=== PATIENT | male | born 1945 | race Hispanic/Latino ===

== ENCOUNTER 2018-04-20 13:10 | Inpatient (IN) | payer MEDICARE, OTHER ==
[2018-04-20 13:31] VITALS: BMI 28.8
--- NOTE | 2018-04-20 13:50 | ED PDOC ---
Arrival/HPI - General Chief Complaint: Chest Pain Time Seen by Provider: 04/20/18 13:41 Historian: Patient - History of Present Illness Narrative History of Present Illness (Text): 04/20/18 13:42 72 year old male, whose PMH includes hypertension, 3 coronary stents, and 2 disc removals, who presents to the emergency department complaining of chest tightness associated with shortness of breath, and tingling in left arm. Patient reports this began since the morning at 10:30 and decided to take prescribed medication given by his assembler molded frames Dr. Hope, which provided mild relief. Patient currently feels better but is still experiencing chest tightness. Patient denies dizziness, headache, abdominal pain, fever, nausea, vomiting, diarrhea, or other complaints. Time/Duration: 1-3 hours Symptom Onset: Sudden Symptom Course: Improving Context: Home Past Medical History - Provider Review Nursing Documentation Reviewed: Yes - Tetanus Immunization Tetanus Immunization: Unknown - Cardiac Hx Hypertension: Yes - Pulmonary Hx Respiratory Disorders: No - Neurological Hx Neurological Disorder: No - HEENT Hx HEENT Disorder: No - Renal Hx Renal Disorder: No - Endocrine/Metabolic Hx Endocrine Disorders: No - Hematological/Oncological Hx Blood Disorders: No - Integumentary Hx Dermatological Disorder: No - Musculoskeletal/Rheumatological Hx Arthritis: Yes - Gastrointestinal Hx Gastrointestinal Disorders: No - Genitourinary/Gynecological Hx Genitourinary Disorders: No - Psychiatric Hx Psychophysiologic Disorder: No Hx Substance Use: No - Surgical History Hx Cardiac Catheterization: Yes Hx Coronary Stent: Yes (x3) Hx Orthopedic Surgery: Yes (left rotator cuff, two disc removed) - Anesthesia Hx Anesthesia: Yes Hx Anesthesia Reactions: No Hx Malignant Hyperthermia: No - Suicidal Assessment Feels Threatened In Home Enviroment: No Family/Social History - Physician Review Nursing Documentation Reviewed: Yes Family/Social History: Unknown Family HX Smoking Status: Never Smoked Hx Alcohol Use: No Hx Substance Use: No Hx Substance Use Treatment: No Allergies/Home Meds Allergies/Adverse Reactions: Allergies No Known Allergies Allergy (Verified 04/20/18 13:18) Home Medications: Home Meds Medication Instructions Recorded Confirmed Aspirin/Calcium Carbonate [Marquise 81 mg PO DAILY 09/16/14 09/16/14 Aspirin Regimen W/Calcium] Atorvastatin Calcium [Lipitor] 20 mg PO DAILY 09/16/14 09/16/14 Clopidogrel [Plavix] 75 mg PO DAILY 09/16/14 09/16/14 Cyanocobalamin [Vitamin B12] 1,000 mcg PO DAILY 09/16/14 09/16/14 Escitalopram [Lexapro] 20 mg PO DAILY 09/16/14 09/16/14 Folic Acid 1 mg PO DAILY 09/16/14 09/16/14 Memantine [Namenda] 10 mg PO DAILY 09/16/14 09/16/14 Metoprolol Succinate 50 mg PO DAILY 09/16/14 09/16/14 Naproxen [Naprosyn] 375 mg PO DAILY 09/16/14 09/16/14 Valsartan [Diovan] 160 mg PO DAILY 09/16/14 09/16/14 Zolpidem HALF TABLET [Ambien] 2.5 mg PO HS 09/16/14 09/16/14 diaZEpam [Valium] 10 mg PO PRN PRN 09/16/14 09/16/14 Review of Systems - Review of Systems Constitutional: absent: Fevers Eyes: absent: Vision Changes Respiratory: SOB. absent: Cough Cardiovascular: Chest Pain Gastrointestinal: absent: Abdominal Pain, Vomiting, Food Intolerance Genitourinary Male: absent: Dysuria Musculoskeletal: absent: Back Pain Skin: absent: Rash Neurological: Other (left arm tingling ). absent: Headache Physical Exam Vital Signs Reviewed: Yes Vital Signs Temp Pulse Pulse Resp BP Pulse Ox 04/20/18 15:39 68 17 128/92 H 94 L 04/20/18 13:28 97.8 F 81 18 146/61 95 04/20/18 13:22 70 Temperature: Afebrile Blood Pressure: Normal Pulse: Regular Respiratory Rate: Normal Appearance: Positive for: Well-Appearing, Non-Toxic, Comfortable Pain Distress: None Mental Status: Positive for: Alert and Oriented X 3 - Systems Exam Head: Present: Atraumatic, Normocephalic Pupils: Present: PERRL Extroacular Muscles: Present: EOMI Conjunctiva: Present: Normal Mouth: Present: Other (shorted neck due to surgery (disc removal) ) Respiratory/Chest: Present: Clear to Auscultation, Good Air Exchange. No: Respiratory Distress, Accessory Muscle Use, Wheezes, Rales, Rhonchi Cardiovascular: Present: Regular Rate and Rhythm, Normal S1, S2. No: Murmurs Abdomen: Present: Normal Bowel Sounds. No: Tenderness, Distention, Peritoneal Signs, Rebound, Guarding Lower Extremity: Present: Normal Inspection, NORMAL PULSES, Normal ROM, Neurovascularly Intact, Capillary Refill < 2 s. No: Edema, Cyanosis, Tenderness , Swelling, Erythema, Deformity Neurological: Present: GCS=15, CN II-XII Intact, Speech Normal Skin: Present: Warm, Dry, Normal Color. No: Rashes Psychiatric: Present: Alert, Oriented x 3, Normal Insight, Normal Concentration Medical Decision Making ED Course and Treatment: 04/20/18 Impression: 72 year old male, with unremarkable physical exam complaining of chest pain and shortness of breath that is improving. Plan: -- EKG -- Labs -- Chest X-ray -- Urinalysis -- Aspirin -- Reassess and disposition Progress Notes: EKG: Ordered, reviewed, and independently interpreted the EKG. Rate : 85 BPM Rhythm : NSR Interpretation : Normal axis 04/20/18 14:[address] Luna who is aware of plan and admitting patient to observation telemetry. Chest X-ray Dictator : Star Mccartney MD Report Date : 04/20/2018 14:44:33 IMPRESSION: No active disease. 04/20/18 16:10: Case discussed in detail with Dr. Mayo who agrees with emergency department management. EKG: Ordered, reviewed, and independently interpreted the EKG. Rate : 68 BPM Rhythm : NSR Interpretation : Normal axis - Lab Interpretations Lab Results: 04/20/18 13:45 04/20/18 13:45 Lab Results 04/20/18 13:45: Sodium 147, Potassium 4.0, Chloride 106, Carbon Dioxide 27, Anion Gap 18, BUN 15, Creatinine 1.3, Est GFR ( Amer) > 60, Est GFR (Non- Af Amer) 54, Random Glucose 98, Calcium 9.3, Magnesium 1.8, Total Bilirubin 0.6 , AST 25, ALT 27, Alkaline Phosphatase 66, Lactate Dehydrogenase 444, Total Creatine Kinase 93, Troponin I 0.03, NT-Pro-B Natriuret Pep 68.5, Total Protein 7.2, Albumin 4.3, Globulin 2.9, Albumin/Globulin Ratio 1.5 04/20/18 13:45: WBC 10.1, RBC 4.58, Hgb 14.4, Hct 42.6, MCV 93.0, MCH 31.4, MCHC 33.8, RDW 13.5, Plt Count 260, MPV 8.7, Gran % 66.3, Lymph % (Auto) 24.0, [place] % (Auto) 8.8 H, Eos % (Auto) 0.6 L, Baso % (Auto) 0.3, Gran # 6.72 H, Lymph # (Auto) 2.4, [place] # (Auto) 0.9 H, Eos # (Auto) 0.1, Baso # (Auto) 0.03 I have reviewed the lab results: Yes - RAD Interpretation Radiology Orders: 04/20/18 13:47 CHEST PORTABLE [RAD] Stat Environmental Projects Advisor: Radiologist - EKG Interpretation Interpreted by ED Physician: Yes Type: 12 lead EKG - Medication Orders Current Medication Orders: Discontinued Medications Aspirin (Aspirin) 325 mg PO STAT STA Stop: 04/20/18 13:47 Last Admin: 04/20/18 14:33 Dose: 325 mg - Scribe Statement The provider has reviewed the documentation as recorded by the Serge Baxter Provider Scribe Attestation: All medical record entries made by the Serge were at my direction and personally dictated by me. I have reviewed the chart and agree that the record accurately reflects my personal performance of the history, physical exam, medical decision making, and the department course for this patient. I have also personally directed, reviewed, and agree with the discharge instructions and disposition. Disposition/Present on Arrival - Present on Arrival History of DVT/PE: No History of Uncontrolled Diabetes: No Urinary Catheter: No History of Decub. Ulcer: No History Surgical Site Infection Following: None - Disposition
[2018-04-20 13:59] LABS: BASO # 0.03 K/mm3 (0.0-2.0); BASO % 0.3 % (0.0-3.0); EOS # 0.1 (0.0-0.7); EOS % 0.6 % (1.5-5.0); GRAN # 6.72 (1.4-6.5); GRAN % 66.3 % (50.0-68.0); HEMOGLOBIN 14.4 g/dL (14.0-18.0); LYMPH # 2.4 (1.2-3.4); MEAN CORPUSCULAR HEMOGLOBIN 31.4 pg (25.0-35.0); MEAN CORPUSCULAR HGB CONC 33.8 g/dl (31.0-37.0); MEAN PLATELET VOLUME 8.7 fl (7.0-11.0); MONO # 0.9 (0.1-0.6); MONO % 8.8 % (1.0-6.0); RBC 4.58 10^6/uL (3.5-6.1); RED CELL DISTRIBUTION WIDTH 13.5 % (11.5-14.5); WHITE BLOOD COUNT 10.1 10^3/ul (4.5-11.0)
[2018-04-20 14:21] LABS: B-TYPE NATRIURETIC PEPTIDE 68.5 pg/mL (0-450)
[2018-04-20 14:29] LABS: TROPONIN I 0.03 ng/mL
--- NOTE | 2018-04-20 14:46 | RAD ---
HISTORY: chest pain r/o infiltrate COMPARISON: 09/16/2014 FINDINGS: LUNGS: No active pulmonary disease. PLEURA: No significant pleural effusion identified, no pneumothorax apparent. CARDIOVASCULAR: Normal. OSSEOUS STRUCTURES: No significant abnormalities. VISUALIZED UPPER ABDOMEN: Normal. OTHER FINDINGS: None. IMPRESSION: No active disease.
[2018-04-20 16:51] LABS: ALB/GLOB RATIO 1.5 (1.1-1.8); ALBUMIN 4.3 g/dL (3.0-4.8); ALT/SGPT 27 U/L (7-56); AST/SGOT 25 U/L (17-59); BLOOD UREA NITROGEN 15 mg/dL (7-21); CALCIUM 9.3 mg/dL (8.4-10.5); GFR AFRICAN-AMERICAN > 60; GFR NON-AFRICAN AMERICAN 54
--- NOTE | 2018-04-20 18:21 | CARD ---
APPROVED REPORT EKG Measurement Heart [id number] <Conclusion> Normal sinus rhythm Normal ECG
[2018-04-20] MEDS ORDERED: Pneumococcal 23-Valent Vaccine IM ONE (22:06)
[2018-04-20] MEDS: Enoxaparin 80 mg Syringe SC SCH (23:12)
--- NOTE | 2018-04-21 06:41 | CP.PCM.HP ---
<Carleen Teresa - Last Filed: 04/21/18 08:17> History of Present Illness - History of Present Illness History of Present Illness: H&P for Radha Sultana PGY2 This is a 72yo male with past medical history HTN, CAD, depression who came to ED for sudden onset chest pain with shortness of breath. Patient states he was at [employer] when he had this sudden substernal chest pain that radiated down to his L arm. He was not doing any exertional exercise at the time. He also felt short of breath. He took a medication (unsure of the name) that was given to him by Dr. Mayo and it provided minimal relief. He has never had this pain before. Patient denies vision changes, numbness/tingling, fever/chills, nausea/ vomiting/diarrhea, dysuria, or hematuria. Patient states his symptoms have now resolved. In the ED, EKG showed NSR without any acute changes. CXR showed no active disease. Past medical history: HTN, CAD s/p 3 stents, cervical radiculopathy and depression Past surgical history: rotator cuff surgery, cervical disc removal (C4-C6), Home meds: As per MAR Social history: Denies EtOH, drug or tobacco use Morning Caregiver: Dr. Mayo Present on Admission - Present on Admission Any Indicators Present on Admission: No Review of Systems - Review of Systems All systems: reviewed and no additional remarkable complaints except Review of Systems: 12 point ROS reviewed as per HPI and is otherwise negative Past Patient History - Tetanus Immunizations Tetanus Immunization: Unknown - Past Social History Smoking Status: Never Smoked Alcohol: None Drugs: Denies - CARDIAC Hx Hypercholesterolemia: Yes Hx Hypertension: Yes - PULMONARY Hx Respiratory Disorders: No - NEUROLOGICAL Hx Neurological Disorder: No - HEENT Hx HEENT Problems: No - RENAL Hx Chronic Kidney Disease: No - ENDOCRINE/METABOLIC Hx Endocrine Disorders: No - HEMATOLOGICAL/ONCOLOGICAL Hx Blood Disorders: Yes - INTEGUMENTARY Hx Dermatological Problems: Yes Other/Comment: scratch strauss redness lle - MUSCULOSKELETAL/RHEUMATOLOGICAL Hx Musculoskeletal Disorders: Yes Hx Arthritis: Yes Hx Back Pain: Yes Hx Falls: Yes (last summer) Other/Comment: back problems since last bourne was trimming a rendon instead of going around pt jumped over rendon and fell injuring lower back - GASTROINTESTINAL Hx Gastrointestinal Disorders: No - GENITOURINARY/GYNECOLOGICAL Hx Genitourinary Disorders: No - PSYCHIATRIC Hx Psychophysiologic Disorder: No Hx Substance Use: No - SURGICAL HISTORY Hx Cardiac Catheterization: Yes Hx Coronary Stent: Yes (x3) Hx Orthopedic Surgery: Yes Other/Comment: left rotator cuff sx 4 sx's has decreased rom, cervical spine sx c 4-5 and c5-6 removed and replaced with 2 artificial discs - ANESTHESIA Hx Anesthesia: Yes Hx Anesthesia Reactions: No Hx Malignant Hyperthermia: No Meds Allergies/Adverse Reactions: Allergies Allergy/AdvReac Type Severity Reaction Status Date / Time No Known Allergies Allergy Verified 04/20/18 13:18 Physical Exam - Constitutional Appears: No Acute Distress - Head Exam Head Exam: ATRAUMATIC, NORMAL INSPECTION, NORMOCEPHALIC - Eye Exam Eye Exam: Normal appearance, PERRL Pupil Exam: NORMAL ACCOMODATION - ENT Exam ENT Exam: Mucous Membranes Moist - Respiratory Exam Respiratory Exam: Clear to Auscultation Bilateral, NORMAL BREATHING PATTERN. absent: Rales, Rhonchi, Wheezes - Cardiovascular Exam Cardiovascular Exam: REGULAR RHYTHM, +S1, +S2. absent: Gallop, Rubs, Systolic Murmur - GI/Abdominal Exam GI & Abdominal Exam: Normal Bowel Sounds, Soft. absent: Mass, Rebound, Rigid, Tenderness - Extremities Exam Extremities exam: Positive for: normal inspection. Negative for: calf tenderness, pedal edema - Neurological Exam Neurological exam: Alert, CN II-XII Intact, Oriented x3 - Psychiatric Exam Psychiatric exam: Normal Affect, Normal Mood - Skin Skin Exam: Dry, Warm Results - Vital Signs Recent Vital Signs: Last Vital Signs Temp 97.9 F 04/21/18 06:00 Pulse 60 04/21/18 06:00 Resp 18 04/21/18 06:00 BP 115/77 04/21/18 06:00 Pulse Ox 98 04/21/18 06:00 - Labs Result Diagrams: 04/20/18 13:45 04/20/18 13:45 Labs: Laboratory Results - last 24 hr 04/20/18 16:15 Troponin I 0.36 H* D Assessment & Plan - Assessment and Plan (Free Text) Assessment: This is a 72yo male with past medical history HTN, CAD, depression who was admitted for 1. NSTEMI 2. CAD s/p stents 3. HTN 4. Depression 5. Cervical radiculopathy Plan: Patient was found to have elevated troponin. He is on therapeutic Lovenox as well as Lipitor, metoprolol and ASA . Cardiology is consulted for further evaluation. Will speak to Dr. Mayo if patient had outpatient stress test or echo. His BP is normal at this time. Will hold his Diovan. Will continue Gabapentin and Lexapro. Pepcid for GI prophylaxis. Patient will be evaluated by physical therapy. Case seen, discussed and reviewed with Dr. Cheryl Teresa PGY2 - Date & Time Date: 04/21/18 Time: 07:50 <Hugo Luna S - Last Filed: 04/21/18 16:11> Results - Vital Signs Recent Vital Signs: Last Vital Signs Temp 98.4 F 04/21/18 12:00 Pulse 64 04/21/18 14:00 Resp 20 04/21/18 12:00 BP 125/67 04/21/18 12:00 Pulse Ox 98 04/21/18 06:00 - Labs Result Diagrams: 04/20/18 13:45 04/20/18 13:45 Labs: Laboratory Results - last 24 hr 04/21/18 10:20 Urine Color Yellow Urine Appearance Clear Urine pH 5.5 Ur Specific [place] 1.025 Urine Protein Negative Urine Glucose (UA) Negative Urine Ketones Negative Urine Blood Negative Urine Nitrate Negative Urine Bilirubin Negative Urine Urobilinogen 0.2 Ur Leukocyte Esterase Negative Assessment & Plan - Assessment and Plan (Free Text) Plan: Pt seen and examined. I have reviewed the note of the medical education manager and agree with it. I have discussed the assessment and plan with the resident. I have reviewed the patient's labs and medications. He has NSTEMI. He will need to get a cath in the morning. He has a hx of CAD with stents. He is not having chest pain. He was placed on ASA, Metoporolol and Lovenox.
--- NOTE | 2018-04-21 08:07 | CARD ---
APPROVED REPORT EKG Measurement Heart [id number] <Conclusion> Normal sinus rhythm Normal ECG
[2018-04-21 10:36] LABS: PH,URINE 5.5 (4.7-8.0); URINE BILIRUBIN NEGATIVE (NEGATIVE); URINE BLOOD NEGATIVE (NEGATIVE); URINE GLUCOSE (UA) NEGATIVE (NEGATIVE); URINE LEUKOCYTE ESTERASE NEGATIVE Leu/uL (NEGATIVE); URINE PROTEIN NEGATIVE mg/dL (<30 mg/dL); URINE UROBILINOGEN 0.2 E.U./dL (<1 E.U./dL)
[2018-04-21 10:40] LABS: URINE APPEARANCE CLEAR (CLEAR); URINE COLOR YELLOW (YELLOW)
[2018-04-21] MEDS: Enoxaparin 80 mg Syringe SC SCH (11:03)
[2018-04-21 16:58] LABS: INR 1.03 (0.93-1.08); PARTIAL THROMBOPLASTIN TIME 38.2 Seconds (25.1-36.5); PROTHROMBIN TIME 11.7 SECONDS (9.4-12.5)
--- NOTE | 2018-04-21 17:30 | CON ---
DATE: 04/21/2018 HISTORY OF PRESENT ILLNESS: This is a 72-year-old man, known to me, admitted with an episode of left arm tingling followed by chest pain and shortness of breath. He came to the emergency room and was found to have an elevated third troponin. He is resting comfortably in a telemetry bed this morning. The symptoms have resolved. There is no shortness of breath or chest pain. There is no orthopnea, PND, syncope, presyncope, lightheadedness, dizziness or vertigo. No palpitations, edema, claudication. No fever, chills, cough, sputum production or hemoptysis. No abdominal pain, nausea, vomiting, diarrhea, constipation or melena. PAST MEDICAL HISTORY: Notable for coronary artery disease with remote coronary stents, hypertension, cervical discogenic disease with a prior surgery. He has had shoulder surgery, depression, Alzheimer disease, but no history of congestive heart failure, arrhythmia, stroke, TIA, diabetes or gout. MEDICATIONS AT THE TIME OF ADMISSION: Include aspirin, Lipitor, Plavix, vitamin B12, Lexapro, folic acid, Namenda, metoprolol, Naprosyn, valsartan, Ambien, Valium p.r.n. ALLERGIES: THERE ARE NO KNOWN MEDICATION ALLERGIES. SOCIAL HISTORY: He lives at home. He is ambulatory. He does not currently smoke. He does not drink alcohol significantly. FAMILY HISTORY: Noncontributory. REVIEW OF SYSTEMS: A 10-point review of systems is otherwise unremarkable except as noted above. PHYSICAL EXAMINATION GENERAL: He is a well-developed man, lying in bed on telemetry, in no acute distress. VITAL SIGNS: Notable for sinus rhythm at 60 beats per minute. He is afebrile, blood pressure 115/77, respirations 18, and O2 sat 95%-98% on nasal cannula. HEENT: Reveals no neck vein distention, thyromegaly or carotid bruits. Mucous membranes moist. Conjunctivae pink. NECK: Supple. CHEST: Lung [place] clear. HEART: Reveals normal first and second heart sounds. There is a soft systolic murmur along the left sternal border. ABDOMEN: Soft, bowel sounds present. No mass, organomegaly, tenderness, rebound or guarding. No CVA tenderness. No palpable abdominal aortic aneurysm. EXTREMITIES: Revealed no cyanosis, clubbing or edema. NEUROLOGIC: Awake, alert and oriented. SKIN: Warm and dry. No rash or cellulitis. PSYCHIATRIC: Normal as to mood and affect. LABORATORY AND IMAGING: EKG demonstrates regular sinus rhythm, no acute changes, small inferior Q-waves. A repeat EKG shows similar findings. A portable chest x-ray reveals no active disease. CBC is unremarkable. Electrolytes, BUN, creatinine, blood sugar, magnesium, LFTs all unremarkable. CK initially 93. Troponin 0.3, repeat 0.36 and 3.31. BNP 68.5. IMPRESSION AND PLAN: Star Huggins is a 72-year-old man with known coronary artery disease, remote coronary interventions, admitted with atypical left arm and chest pain episode with shortness of breath, found to have elevated troponin with benign EKG. He is admitted to telemetry. We will plan a cardiac catheterization for him tomorrow morning. In the meantime, he is on aspirin, Lipitor, metoprolol, Lovenox and Plavix. He will be at bed to chair activity level. I will get an echocardiogram. I will review his old records. We will continue his Exelon patch, Lexapro and Neurontin. We will make additional recommendations based on the cardiac catheterization. Tyshawn Mayo MD MTDD
--- NOTE | 2018-04-22 07:47 | CARD ---
APPROVED REPORT EXAM: Two-dimensional and M-mode echocardiogram with Doppler and color Doppler. INDICATION Chest Pain 2D DIMENSIONS Left Atrium (2D)4.1 (1.6-4.0cm)IVSd1.0 (0.7-1.1cm) LVDd4.8 (3.9-5.9cm)PWd1.1 (0.7-1.1cm) LVDs3.3 (2.5-4.0cm)FS (%) 30.5 % LVEF (%)57.9 (>50%) M-Mode DIMENSIONS Aortic Root2.90 (2.2-3.7cm)Aortic Cusp Exc.2.00 (1.5-2.0cm) Aortic Valve AoV Peak Mkxidocx500.0cm/Lila Peak GR.10mmHg Mitral Valve MV E Edfvywmw90.9cm/sMV A Xugaeqzv045.0cm/sE/A ratio0.8 TDI E/Lateral E'0.0E/Medial E'0.0 Tricuspid Valve TR Peak [id number]/sRAP [id number] Peak Gr.24mmHg [id number] LEFT VENTRICLE The left ventricle is normal size. There is normal left ventricular wall thickness. The systolic function is mildly impaired. Mild anteroseptal hypokinesis noted. RIGHT VENTRICLE The right ventricle is normal size. The right ventricular systolic function is normal. ATRIA The left atrium is mildly dilated. The right atrium size is normal. The interatrial septum is intact with no evidence for an atrial septal defect. AORTIC VALVE The aortic valve is normal in structure. No aortic regurgitation is present. There is no aortic valvular stenosis. MITRAL VALVE The mitral valve is normal in structure. Mitral regurgitation is mild. TRICUSPID VALVE The tricuspid valve is normal in structure. There is mild tricuspid regurgitation. PULMONIC VALVE The pulmonary valve is normal in structure. GREAT VESSELS The aortic root is normal in size. The IVC is normal in size and collapses >50% with inspiration. PERICARDIAL EFFUSION There is no pleural effusion. There is no pericardial effusion. <Conclusion> Mildly dilated LA. Normal LV size. Mildly reduced LV systolic function with anteroseptal hypokinesis noted. Mild MR and TR.
--- NOTE | 2018-04-22 08:58 | CP.PCM.PN ---
<Carleen Teresa - Last Filed: 04/22/18 09:53> Subjective - Date & Time of Evaluation Date of Evaluation: 04/22/18 Time of Evaluation: 08:00 - Subjective Subjective: Progress Note for Radha Sultana PGY2 Patient seen and examined at bedside. As per nursing staff, there were no acute overnight events. Patient feels well today. He denies chest pain, shortness of breath, nausea/vomiting/diarrhea, fever/chills, numbness/tingling, dysuria or hematuria. Objective - Vital Signs/Intake and Output Vital Signs (last 24 hours): Temp Pulse Resp BP Pulse Ox 98.3 F 67 18 158/72 H 98 04/22/18 06:00 04/22/18 06:00 04/22/18 06:00 04/22/18 06:00 04/21/18 06:00 Intake and Output: 04/22/18 04/22/18 06:59 18:59 Intake Total 660 Balance 660 - Medications Medications: Current Medications Aspirin (Ecotrin) 81 mg PO DAILY [facility] Last Admin: 04/21/18 10:43 Dose: 81 mg Atorvastatin Calcium (Lipitor) 20 mg PO DIN [facility] Last Admin: 04/21/18 17:07 Dose: 20 mg Clopidogrel Bisulfate (Plavix) 75 mg PO DAILY [facility] Last Admin: 04/21/18 10:43 Dose: 75 mg Enoxaparin Sodium (Lovenox) 80 mg SC Q12H [facility] PRN Reason: Protocol Last Admin: 04/21/18 11:03 Dose: 80 mg Escitalopram Oxalate (Lexapro) 20 mg PO DAILY [facility] Last Admin: 04/21/18 10:43 Dose: 20 mg Famotidine (Pepcid) 40 mg PO HS [facility] Last Admin: 04/21/18 22:24 Dose: 40 mg Gabapentin (Neurontin) 100 mg PO HS [facility] PRN Reason: Protocol Last Admin: 04/21/18 22:24 Dose: 100 mg Metoprolol Tartrate (Lopressor) 25 mg PO Q12 [facility] Last Admin: 04/21/18 22:23 Dose: 25 mg Rivastigmine (Exelon 9.5 Mg/24 Hr Patch) 1 patch TD Q24H [facility] Last Admin: 04/21/18 22:22 Dose: 1 patch - Labs Labs: PT 11.7 SECONDS (9.4-12.5) 04/21/18 16:15 INR 1.03 (0.93-1.08) 04/21/18 16:15 APTT 38.2 Seconds (25.1-36.5) H 04/21/18 16:15 - Constitutional Appears: No Acute Distress - Head Exam Head Exam: ATRAUMATIC, NORMAL INSPECTION, NORMOCEPHALIC - Eye Exam Eye Exam: Normal appearance, PERRL Pupil Exam: NORMAL ACCOMODATION, PERRL - ENT Exam ENT Exam: Mucous Membranes Moist - Respiratory Exam Respiratory Exam: Respiratory Distress, NORMAL BREATHING PATTERN. absent: Rales , Rhonchi, Wheezes - Cardiovascular Exam Cardiovascular Exam: REGULAR RHYTHM, +S1, +S2. absent: Gallop, Rubs, Murmur - GI/Abdominal Exam GI & Abdominal Exam: Soft, Normal Bowel Sounds. absent: Rigid, Tenderness, Mass , Rebound - Extremities Exam Extremities Exam: Normal Inspection. absent: Calf Tenderness, Pedal Edema - Psychiatric Exam Psychiatric exam: Normal Affect, Normal Mood - Skin Skin Exam: Dry, Warm Assessment and Plan - Assessment and Plan (Free Text) Assessment: This is a 72yo male with past medical history HTN, CAD, depression who was admitted for 1. NSTEMI 2. CAD s/p stents 3. HTN 4. Depression 5. Cervical radiculopathy Plan: Troponin is trending down. Echo was reviewed which showed EF 57%. As per cardiology, patient will be transferred to another facility tomorrow for cardiac cath because patient is on Exelon patch. We will continue ASA, Lipitor, Metoprolol, Plavix and Lovenox. We will restart patient on Diovan. Continue Lexapro and Gabapentin. Patient is independent in all ADLs. He is on GI and DVT prophylaxis. Case seen, discussed and reviewed with Dr. Cheryl Teresa PGY2 <Hugo Luna - Last Filed: 04/22/18 21:27> Objective - Vital Signs/Intake and Output Vital Signs (last 24 hours): Temp Pulse Resp BP Pulse Ox 98.3 F 69 18 143/72 98 04/22/18 18:00 04/22/18 18:00 04/22/18 18:00 04/22/18 18:00 04/21/18 06:00 Intake and Output: 04/22/18 04/23/18 18:59 06:59 Intake Total 300 Balance 300 - Medications Medications: Current Medications Aspirin (Ecotrin) 81 mg PO DAILY [facility] Last Admin: 04/22/18 10:37 Dose: 81 mg Atorvastatin Calcium (Lipitor) 20 mg PO DIN [facility] Last Admin: 04/22/18 17:07 Dose: 20 mg Clopidogrel Bisulfate (Plavix) 75 mg PO DAILY [facility] Last Admin: 04/22/18 10:37 Dose: 75 mg Enoxaparin Sodium (Lovenox) 80 mg SC Q12H [facility] PRN Reason: Protocol Last Admin: 04/21/18 11:03 Dose: 80 mg Escitalopram Oxalate (Lexapro) 20 mg PO DAILY [facility] Last Admin: 04/22/18 10:37 Dose: 20 mg Famotidine (Pepcid) 40 mg PO HS [facility] Last Admin: 04/21/18 22:24 Dose: 40 mg Gabapentin (Neurontin) 100 mg PO HS [facility] PRN Reason: Protocol Last Admin: 04/21/18 22:24 Dose: 100 mg Loperamide HCl (Imodium) 2 mg PO Q6 PRN PRN Reason: Diarrhea Last Admin: 04/22/18 16:03 Dose: 2 mg Losartan Potassium (Cozaar) 100 mg PO DAILY [facility] Last Admin: 04/22/18 10:37 Dose: 100 mg Metoprolol Tartrate (Lopressor) 25 mg PO Q12 [facility] Last Admin: 04/22/18 10:37 Dose: 25 mg Rivastigmine (Exelon 9.5 Mg/24 Hr Patch) 1 patch TD Q24H [facility] Last Admin: 04/21/18 22:22 Dose: 1 patch - Labs Labs: PT 11.7 SECONDS (9.4-12.5) 04/21/18 16:15 INR 1.03 (0.93-1.08) 04/21/18 16:15 APTT 38.2 Seconds (25.1-36.5) H 04/21/18 16:15 Assessment and Plan - Assessment and Plan (Free Text) Plan: Pt seen and examined. I have reviewed the note of the medical records library professor and agree with it. I have discussed the assessment and plan with the resident. I have reviewed the patient's labs and medications. He had a NSTEMI. He is going for a cath at [facility]. Spoke to family at bedside.
[2018-04-22] MEDS ORDERED: Non Formulary Medication (Valsartan [Diovan] 160 MG) PO SCH (10:00)
--- NOTE | 2018-04-22 10:26 | PN ---
DATE: 04/22/2018 SUBJECTIVE: The patient is seen lying in bed on telemetry. He has had no recurrent chest pain overnight. His repeat troponin was 1.6, down from peak of 3.31. CURRENT MEDICATIONS: Include aspirin, Plavix, metoprolol 25 mg b.i.d., Lipitor 20 mg daily, subcutaneous Lovenox, Neurontin, Exelon patch, Lexapro, Pepcid and Diovan 160 mg daily. OBJECTIVE: GENERAL: He is a middle-aged man, appears comfortable at rest. VITAL SIGNS: His blood pressure is 158/72, pulse 64, respirations are 14. He is afebrile. HEENT: No JVD. CHEST: A few scattered rhonchi heard. HEART: PMI displaced laterally with soft systolic murmur in the left sternal border. ABDOMEN: Soft, nontender. Normoactive bowel sounds. EXTREMITIES: No edema. DIAGNOSTIC DATA: Troponin as noted. His echocardiogram was reviewed and reveals mildly dilated left atrium with normal LV size. Mildly reduced LV systolic function with mild anteroseptal hypokinesis and mild mitral and tricuspid regurgitation. IMPRESSION: 1. Recent [id number] elevation myocardial infarction, clinically stable at the present time. Unable to undergo current intervention at this facility due to use of Exelon, which represents a restriction according to the CPORT program guidelines. 2. Rest of problems as noted. RECOMMENDATIONS: The patient will be transferred to [facility] in the morning and undergo cardiac catheterization and possible PCI at that time. Further plans will be made based on those results. In the interim, his current medications should be continued for now. Luís Vergara MD [facility] HOSPITALCaroline
[2018-04-23 00:42] VITALS: RESP 20; O2SAT 97
[2018-04-23 06:07] VITALS: BP 124/78; PULSE 62; TEMP 98.2
--- NOTE | 2018-04-23 07:13 | CP.PCM.DIS ---
<Carleen Teresa - Last Filed: 04/23/18 07:49> Provider - Provider Date of Admission: 04/21/18 08:14 Attending physician: Hugo Luna MD Primary care physician: Esau Wheeler MD Consults: Cardio: Dr. Mayo Time Spent in preparation of Discharge (in minutes): 35 Hospital Course - Lab Results Lab Results: Most Recent Lab Values WBC 10.1 10^3/ul (4.5-11.0) 04/20/18 13:45 RBC 4.58 10^6/uL (3.5-6.1) 04/20/18 13:45 Hgb 14.4 g/dL (14.0-18.0) 04/20/18 13:45 Hct 42.6 % (42.0-52.0) 04/20/18 13:45 MCV 93.0 fl (80.0-105.0) 04/20/18 13:45 MCH 31.4 pg (25.0-35.0) 04/20/18 13:45 MCHC 33.8 g/dl (31.0-37.0) 04/20/18 13:45 RDW 13.5 % (11.5-14.5) 04/20/18 13:45 Plt Count 260 10^3/uL (120.0-450.0) 04/20/18 13:45 MPV 8.7 fl (7.0-11.0) 04/20/18 13:45 Gran % 66.3 % (50.0-68.0) 04/20/18 13:45 Lymph % (Auto) 24.0 % (22.0-35.0) 04/20/18 13:45 Rock % (Auto) 8.8 % (1.0-6.0) H 04/20/18 13:45 Eos % (Auto) 0.6 % (1.5-5.0) L 04/20/18 13:45 Baso % (Auto) 0.3 % (0.0-3.0) 04/20/18 13:45 Gran # 6.72 (1.4-6.5) H 04/20/18 13:45 Lymph # (Auto) 2.4 (1.2-3.4) 04/20/18 13:45 Rock # (Auto) 0.9 (0.1-0.6) H 04/20/18 13:45 Eos # (Auto) 0.1 (0.0-0.7) 04/20/18 13:45 Baso # (Auto) 0.03 K/mm3 (0.0-2.0) 04/20/18 13:45 PT 11.7 SECONDS (9.4-12.5) 04/21/18 16:15 INR 1.03 (0.93-1.08) 04/21/18 16:15 APTT 38.2 Seconds (25.1-36.5) H 04/21/18 16:15 Sodium 147 mmol/L (132-148) 04/20/18 13:45 Potassium 4.0 mmol/L (3.6-5.0) 04/20/18 13:45 Chloride 106 mmol/L (98-107) 04/20/18 13:45 Carbon Dioxide 27 mmol/L (21-33) 04/20/18 13:45 Anion Gap 18 (10-20) 04/20/18 13:45 BUN 15 mg/dL (7-21) 04/20/18 13:45 Creatinine 1.3 mg/dl (0.8-1.5) 04/20/18 13:45 Est GFR ( Amer) > 60 04/20/18 13:45 Est GFR (Non-Af Amer) 54 04/20/18 13:45 Random Glucose 98 mg/dL (70-110) 04/20/18 13:45 Calcium 9.3 mg/dL (8.4-10.5) 04/20/18 13:45 Magnesium 1.8 mg/dL (1.7-2.2) 04/20/18 13:45 Total Bilirubin 0.6 mg/dL (0.2-1.3) 04/20/18 13:45 AST 25 U/L (17-59) 04/20/18 13:45 ALT 27 U/L (7-56) 04/20/18 13:45 Alkaline Phosphatase 66 U/L (38-126) 04/20/18 13:45 Lactate Dehydrogenase 444 U/L (333-699) 04/20/18 13:45 Total Creatine Kinase 93 U/L (35-230) 04/20/18 13:45 Troponin I 1.60 ng/mL H* D 04/21/18 16:15 NT-Pro-B Natriuret Pep 68.5 pg/mL (0-450) 04/20/18 13:45 Total Protein 7.2 g/dL (5.8-8.3) 04/20/18 13:45 Albumin 4.3 g/dL (3.0-4.8) 04/20/18 13:45 Globulin 2.9 gm/dL 04/20/18 13:45 Albumin/Globulin Ratio 1.5 (1.1-1.8) 04/20/18 13:45 Urine Color Yellow (YELLOW) 04/21/18 10:20 Urine Appearance Clear (CLEAR) 04/21/18 10:20 Urine pH 5.5 (4.7-8.0) 04/21/18 10:20 Ur Specific [place] 1.025 (1.005-1.035) 04/21/18 10:20 Urine Protein Negative mg/dL (<30 mg/dL) 04/21/18 10:20 Urine Glucose (UA) Negative mg/dL (NEGATIVE) 04/21/18 10:20 Urine Ketones Negative mg/dL (NEGATIVE) 04/21/18 10:20 Urine Blood Negative (NEGATIVE) 04/21/18 10:20 Urine Nitrate Negative (NEGATIVE) 04/21/18 10:20 Urine Bilirubin Negative (NEGATIVE) 04/21/18 10:20 Urine Urobilinogen 0.2 E.U./dL (<1 E.U./dL) 04/21/18 10:20 Ur Leukocyte Esterase Negative Michele/uL (NEGATIVE) 04/21/18 10:20 - Hospital Course Hospital Course: This is a 72yo male with past medical history HTN, CAD, depression who was admitted for NSTEMI. Troponins trended down. Patient was on therapeutic lovenox. Echo was done which showed EF of 57%. Patient was placed on ASA, Diovan , Lipitor, Plavix and Metoprolol. Cardiology is on consult. Patient will be transferred to [facility] for cardiac cath. Cardiac cath is contraindicated in [place] because the patient is on Exelon patch. Patient is independent in all ADLs and [facility] most [facility] He will follow up with PMD, Dr. Wheeler and [place] Secretary, Dr. Mayo as outpatient. Discussed discharge plan with patient. Patient verbalized and agrees with transfer and discharge plan. - Date & Time of H&P Date of H&P: 04/21/18 Time of H&P: 07:00 Discharge Exam - Head Exam Head Exam: ATRAUMATIC, NORMAL INSPECTION, NORMOCEPHALIC - Eye Exam Eye Exam: Normal appearance, PERRL Pupil Exam: NORMAL ACCOMODATION - ENT Exam ENT Exam: Mucous Membranes Moist - Respiratory Exam Respiratory Exam: Clear to PA & Lateral, NORMAL BREATHING PATTERN, UNREMARKABLE. absent: Rhonchi, Wheezes - Cardiovascular Exam Cardiovascular Exam: REGULAR RHYTHM, +S1, +S2. absent: Gallop, Rubs, Systolic Murmur - GI/Abdominal Exam GI & Abdominal Exam: Normal Bowel Sounds, Soft, Unremarkable. absent: Mass, Rebound, Rigid - Extremities Exam Extremities exam: normal inspection - Neurological Exam Neurological exam: Alert, CN II-XII Intact, Normal Gait, Oriented x3 - Psychiatric Exam Psychiatric exam: Normal Affect, Normal Mood - Skin Skin Exam: Dry, Intact, Normal Color, Warm Discharge Plan - Follow Up Plan Condition: GOOD Disposition: OTHER INSTITUTION Additional Instructions: Activities as tolerated Follow [facility] Referrals: Esau Wheeler MD [Primary Care Provider] - <Hugo Luna - Last Filed: 04/23/18 15:48> Provider - Provider Date of Admission: 04/21/18 08:14 Attending physician: Hugo Luna MD Primary care physician: Esau Wheeler MD Hospital Course - Lab Results Lab Results: Most Recent Lab Values WBC 10.1 10^3/ul (4.5-11.0) 04/20/18 13:45 RBC 4.58 10^6/uL (3.5-6.1) 04/20/18 13:45 Hgb 14.4 g/dL (14.0-18.0) 04/20/18 13:45 Hct 42.6 % (42.0-52.0) 04/20/18 13:45 MCV 93.0 fl (80.0-105.0) 04/20/18 13:45 MCH 31.4 pg (25.0-35.0) 04/20/18 13:45 MCHC 33.8 g/dl (31.0-37.0) 04/20/18 13:45 RDW 13.5 % (11.5-14.5) 04/20/18 13:45 Plt Count 260 10^3/uL (120.0-450.0) 04/20/18 13:45 MPV 8.7 fl (7.0-11.0) 04/20/18 13:45 Gran % 66.3 % (50.0-68.0) 04/20/18 13:45 Lymph % (Auto) 24.0 % (22.0-35.0) 04/20/18 13:45 Rock % (Auto) 8.8 % (1.0-6.0) H 04/20/18 13:45 Eos % (Auto) 0.6 % (1.5-5.0) L 04/20/18 13:45 Baso % (Auto) 0.3 % (0.0-3.0) 04/20/18 13:45 Gran # 6.72 (1.4-6.5) H 04/20/18 13:45 Lymph # (Auto) 2.4 (1.2-3.4) 04/20/18 13:45 Rock # (Auto) 0.9 (0.1-0.6) H 04/20/18 13:45 Eos # (Auto) 0.1 (0.0-0.7) 04/20/18 13:45 Baso # (Auto) 0.03 K/mm3 (0.0-2.0) 04/20/18 13:45 PT 11.7 SECONDS (9.4-12.5) 04/21/18 16:15 INR 1.03 (0.93-1.08) 04/21/18 16:15 APTT 38.2 Seconds (25.1-36.5) H 04/21/18 16:15 Sodium 147 mmol/L (132-148) 04/20/18 13:45 Potassium 4.0 mmol/L (3.6-5.0) 04/20/18 13:45 Chloride 106 mmol/L (98-107) 04/20/18 13:45 Carbon Dioxide 27 mmol/L (21-33) 04/20/18 13:45 Anion Gap 18 (10-20) 04/20/18 13:45 BUN 15 mg/dL (7-21) 04/20/18 13:45 Creatinine 1.3 mg/dl (0.8-1.5) 04/20/18 13:45 Est GFR ( Amer) > 60 04/20/18 13:45 Est GFR (Non-Af Amer) 54 04/20/18 13:45 Random Glucose 98 mg/dL (70-110) 04/20/18 13:45 Calcium 9.3 mg/dL (8.4-10.5) 04/20/18 13:45 Magnesium 1.8 mg/dL (1.7-2.2) 04/20/18 13:45 Total Bilirubin 0.6 mg/dL (0.2-1.3) 04/20/18 13:45 AST 25 U/L (17-59) 04/20/18 13:45 ALT 27 U/L (7-56) 04/20/18 13:45 Alkaline Phosphatase 66 U/L (38-126) 04/20/18 13:45 Lactate Dehydrogenase 444 U/L (333-699) 04/20/18 13:45 Total Creatine Kinase 93 U/L (35-230) 04/20/18 13:45 Troponin I 1.60 ng/mL H* D 04/21/18 16:15 NT-Pro-B Natriuret Pep 68.5 pg/mL (0-450) 04/20/18 13:45 Total Protein 7.2 g/dL (5.8-8.3) 04/20/18 13:45 Albumin 4.3 g/dL (3.0-4.8) 04/20/18 13:45 Globulin 2.9 gm/dL 04/20/18 13:45 Albumin/Globulin Ratio 1.5 (1.1-1.8) 04/20/18 13:45 Urine Color Yellow (YELLOW) 04/21/18 10:20 Urine Appearance Clear (CLEAR) 04/21/18 10:20 Urine pH 5.5 (4.7-8.0) 04/21/18 10:20 Ur Specific [place] 1.025 (1.005-1.035) 04/21/18 10:20 Urine Protein Negative mg/dL (<30 mg/dL) 04/21/18 10:20 Urine Glucose (UA) Negative mg/dL (NEGATIVE) 04/21/18 10:20 Urine Ketones Negative mg/dL (NEGATIVE) 04/21/18 10:20 Urine Blood Negative (NEGATIVE) 04/21/18 10:20 Urine Nitrate Negative (NEGATIVE) 04/21/18 10:20 Urine Bilirubin Negative (NEGATIVE) 04/21/18 10:20 Urine Urobilinogen 0.2 E.U./dL (<1 E.U./dL) 04/21/18 10:20 Ur Leukocyte Esterase Negative Michele/uL (NEGATIVE) 04/21/18 10:20 - Hospital Course Hospital Course: Pt seen and examined. I have reviewed the note of the medical appointment clerk and agree with it. I have discussed the assessment and plan with the resident. I have reviewed the patient's labs and medications. Pt was discharged to [facility]
== END 2018-04-23 07:12 | disposition short-term general hospital (02) | DRG 282 ==
LOC: ED 13:10 → UNDOADMIN 13:29 → ERH 13:29 → 2RNO 18:20 → OBSVTOIN 04-21 08:14
PROVIDERS: ADMIT Internal Medicine Nephrology; ATTEND Internal Medicine Nephrology
DX: I21.4 Non-ST elevation (NSTEMI) myocardial infarction (principal); I10 Essential (primary) hypertension; I25.10 Atherosclerotic heart disease of native coronary artery without angina pectoris; G30.9 Alzheimer's disease, unspecified; F02.80 Dementia in other diseases classified elsewhere, unspecified severity, without behavioral disturbance, psychotic disturbance, mood disturbance, and anxiety; E78.00 Pure hypercholesterolemia, unspecified; F32.9 Major depressive disorder, single episode, unspecified; M54.12 Radiculopathy, cervical region; Z95.5 Presence of coronary angioplasty implant and graft; Z79.02 Long term (current) use of antithrombotics/antiplatelets; Z79.82 Long term (current) use of aspirin

== ENCOUNTER 2019-02-11 15:25 | Observation (INO) | payer MEDICARE, OTHER | END 2019-02-12 21:55 | disposition home or self-care (01) | LOC: ED 15:25 → ERH 17:22 → 2RSO 20:31 ==